=== PATIENT | male | born 1990 | race Caucasian/White ===

== ENCOUNTER 2018-02-07 12:47 | Emergency (ER) | payer MEDICAID ==
[~2018-02-07] VITALS: Ht 182.9 cm; Wt 72.6 kg
[2018-02-07 13:11] VITALS: BP 125/70
== END 2018-02-07 15:43 | disposition left against medical advice (07) ==
LOC: ER 12:47
DX: M79.601 Pain in right arm (principal); Z53.21 Procedure and treatment not carried out due to patient leaving prior to being seen by health care provider